=== PATIENT | male | born 1980 | race African-American/Black ===

== ENCOUNTER 2019-01-25 09:13 | Emergency (ER) | payer OTHER ==
[2019-01-25 10:21] LABS: #Eosinphils 0.1 thou/uL (0.0-0.7); #Lymphocytes 0.9 thou/uL (1.20-3.40); #Monocytes 0.6 thou/uL (0.11-0.59); %Basophils 0.2 % (0.0-1.0); %Eosinophils 0.9 % (0.0-10.0); %Lymphocytes 13.9 % (21.0-51.0); %Monocytes 8.7 % (0.0-10.0); %Neutrophils 76.2 % (42.0-75.0); Hemoglobin 15.3 g/dL (14.0-18.0); Mean Corpuscular HGB CONC 33.6 g/dL (32.0-36.0); Mean Corpuscular Hemoglobin 30.8 pg (27.0-31.0); Mean Corpuscular Volume 91.8 fL (78.0-98.0); Mean Platelet Volume 7.3 fL (7.4-10.4); Platelet Count 358 thou/uL (130-400); RBC Distribution Width 11.2 % (11.5-14.5); Red Blood Cell (RBC) Count 4.95 mill/uL (4.70-6.10); White Blood Cell (WBC) Count 6.5 thou/uL (4.8-10.8)
[2019-01-25 10:48] LABS: Acetaminophen Less than 6.0 mcg/mL (10.0-30.0); Alcohol Less than 10 mg/dL (Less than 10); Salicylate Less than 8.0 mg/dL (15.0-30.0)
[2019-01-25 10:50] LABS: ALT (SGPT) 23 U/L (8-55); AST (SGOT) 41 U/L (5-34); Albumin 4.7 g/dL (3.5-5.0); Alcohol Less than 10 mg/dL (Less than 10); Alkaline Phosphatase 83 U/L (40-150); Anion Gap 17 mmol/L (10-20); BUN (Urea Nitrogen) 10 mg/dL (8.9-20.6); Bilirubin, Total 1.3 mg/dL (0.2-1.2); Calc. Creatinine Clearance 0 mL/min (70-130); Calcium 10.4 mg/dL (7.8-10.44); Carbon Dioxide 22 mmol/L (22-29); Chloride 102 mmol/L (98-107); Estimated GFR-MDRD 87; Globulin 3.6 g/dL (2.4-3.5); Glucose 99 mg/dL (70-105); Potassium 3.3 mmol/L (3.5-5.1); Protein, Total 8.3 g/dL (6.0-8.3); Sodium 138 mmol/L (136-145)
[2019-01-25 11:37] LABS: Bilirubin Small (Negative); Blood, Urine Negative (Negative); Clarity CLEAR (Clear); Glucose, Urine (Dipstick) Negative (Negative); Leukocyte Negative (Negative); Nitrite Negative (Negative); Protein, Urine (Dipstick) 30 mg/dL (Neg-Trace); Specific Gravity, Urine 1.013 (1.002-1.036); pH, Urine 6.5 (5.0-9.0)
[2019-01-25 11:40] LABS: Bacteria/HPF None Seen HPF (None Seen); RBC/HPF 0-3 HPF (0-3)
[2019-01-25 11:41] LABS: Pathc Cast-AUWi Flag 3.19 (0-2.49)
[2019-01-25 11:44] LABS: Medtox Reader # READER 1
[2019-01-25 11:46] LABS: Amphetamine Not Detected (NotDetected); Barbiturates Screen Not Detected (NotDetected); Benzodiazepine Screen Not Detected (NotDetected); Cocaine Metabolite Screen Not Detected (NotDetected); Medtox Control Line Valid? VALID (VALID); Methadone Not Detected (NotDetected); Methamphetamine Detected (NotDetected); Opiate Screen Not Detected (NotDetected); Oxycodone Screen Not Detected (NotDetected); Phencyclidine (PCP) Not Detected (NotDetected); THC/Cannabinoid Screen Not Detected (NotDetected); Tricyclic Screen Not Detected (NotDetected)
[2019-01-25 11:49] LABS: Hyaline Casts/LPF 0-3 HYALINE CAST LPF (0-3 Hyaline); Other Casts/LPF 0-3 COARSE GRAN LPF (0-3 Hyaline)
== END 2019-01-25 11:57 ==
LOC: ERS 09:13
DX: F15.10 Other stimulant abuse, uncomplicated (principal); S06.9X0D Unspecified intracranial injury without loss of consciousness, subsequent encounter; I10 Essential (primary) hypertension; F41.9 Anxiety disorder, unspecified; F31.9 Bipolar disorder, unspecified; F20.9 Schizophrenia, unspecified; Z79.899 Other long term (current) drug therapy
CPT/HCPCS: 36415; 51701; 80053; 80306; 80307; 81003; 81015; 85025; 93005; 96360

== ENCOUNTER 2019-01-26 07:57 | Observation (INO) | payer OTHER ==
[2019-01-26 08:45] LABS: #Eosinphils 0.1 thou/uL (0.0-0.7); #Lymphocytes 1.3 thou/uL (1.20-3.40); #Monocytes 0.7 thou/uL (0.11-0.59); #Neutrophils 4.7 thou/uL (1.40-6.50); %Basophils 0.4 % (0.0-1.0); %Eosinophils 1.7 % (0.0-10.0); %Lymphocytes 18.8 % (21.0-51.0); %Monocytes 10.7 % (0.0-10.0); %Neutrophils 68.4 % (42.0-75.0); Hemoglobin 13.6 g/dL (14.0-18.0); Mean Corpuscular HGB CONC 33.2 g/dL (32.0-36.0); Mean Corpuscular Hemoglobin 30.1 pg (27.0-31.0); Mean Corpuscular Volume 90.6 fL (78.0-98.0); Platelet Count 300 thou/uL (130-400); RBC Distribution Width 11.2 % (11.5-14.5); Red Blood Cell (RBC) Count 4.54 mill/uL (4.70-6.10); White Blood Cell (WBC) Count 6.9 thou/uL (4.8-10.8)
[2019-01-26 09:06] LABS: ALT (SGPT) 23 U/L (8-55); AST (SGOT) 57 U/L (5-34); Albumin 4.1 g/dL (3.5-5.0); Alkaline Phosphatase 72 U/L (40-150); Anion Gap 10 mmol/L (10-20); BUN (Urea Nitrogen) 12 mg/dL (8.9-20.6); Bilirubin, Total 1.2 mg/dL (0.2-1.2); Calc. Creatinine Clearance 0 mL/min (70-130); Calcium 9.7 mg/dL (7.8-10.44); Carbon Dioxide 25 mmol/L (22-29); Chloride 108 mmol/L (98-107); Estimated GFR-MDRD Greater than 90; Globulin 3.6 g/dL (2.4-3.5); Glucose 102 mg/dL (70-105); Potassium 4.3 mmol/L (3.5-5.1); Protein, Total 7.7 g/dL (6.0-8.3); Sodium 139 mmol/L (136-145)
[2019-01-26 09:54] LABS: CRP (Inflammatory) 0.51 mg/dL (= or < 0.5)
--- NOTE | 2019-01-26 11:04 | CT ---
BRAIN CT WITHOUT CONTRAST: Comparison: 04-02-17 History: Weakness. Comparison: None. FINDINGS: No parenchymal hemorrhage. No extraaxial hematoma. No midline shift. Basilar cisterns are patent. Bra in volume is age appropriate. Cortical osorio white matter differentiation is preserved. No evidence of hydrocephalus. Calvarium is intact. Adequate aeration of the sinuses and mastoid air cells. IMPRESSION: No acute intracranial process. POS: [facility]
[2019-01-26 11:56] LABS: Bilirubin Small (Negative); Blood, Urine Negative (Negative); Clarity CLEAR (Clear); Glucose, Urine (Dipstick) Negative (Negative); Leukocyte Negative (Negative); Nitrite Negative (Negative); Protein, Urine (Dipstick) Negative (Neg-Trace); Specific Gravity, Urine 1.026 (1.002-1.036)
--- NOTE | 2019-01-26 13:15 | HP ---
PRIMARY CARE PHYSICIAN: Dr. David. CHIEF COMPLAINT: Acting odd and having tremors. HISTORY OF PRESENT ILLNESS: Mr. Bates is a 38-year-old gentleman, who according to the [place] [facility] Records has a history of bipolar disorder and schizophrenia. Apparently, he was picked up for drug use and was in the process of being incarcerated for this when he started having tremors. It is reported that the concern was that he was using methamphetamine as the urine drug screen on 01/25 was positive for this. He was having some tremors and in the ER, it was felt that this was the cause of the tremors. He was treated and released to the senior living. While in senior living, he continued to shake and have tremors pretty much through the night and also into today, the day of admission, and he also appeared to be a bit diaphoretic and for this reason, he was brought back to the emergency room for evaluation. When I see the patient and asked him what is his complaint, he says that "I tremor too much" and when I tried to ask him more questions, he gets very irritated and said "Oh my God!" and basically is very irritated with answering any questions. When asked what other symptoms he had, he said he is weak all over his body and denies having any pain. He denies any fevers or chills. No nausea. No vomiting. No headaches. No feeling dizzy and otherwise, no other complaints. It is of mention that when I am talking with him and the more he talks and is more distracted, the less tremor he has. With regard to the review of systems, all systems were reviewed and are negative except for that mentioned in the history of present illness. PAST MEDICAL HISTORY: The past medical history is taken from the [place] [facility] [employer] Records and includes bipolar disorder and schizophrenia. It appears they had received from [facility]. The patient also has a history of hypertension. The patient says he has "a mind illness and trouble dealing with life." PAST SURGICAL HISTORY: Unknown. ALLERGIES: NO KNOWN DRUG ALLERGIES. FAMILY HISTORY: No history of any heritable diseases. SOCIAL HISTORY: He is single. He says he has 5 children. He is a nonsmoker and nondrinker. His mother was listed in the [facility] Records as next of kin and that is Cathleen Fuller, and her number was [phone]. MEDICATIONS: Unknown. In review of his records back in 2017, he had been on; 1. Risperdal 1 mg twice a day. 2. Lisinopril 10 mg daily. 3. Iron sulfate. 4. Gabapentin 300 mg daily. 5. Tramadol 50 mg as needed. PHYSICAL EXAMINATION: GENERAL: He is alert. He appears to be a bit agitated. He is in four-point restraints and he is a bit diaphoretic. He is well developed and well nourished. VITAL SIGNS: His blood pressure was 156/109, heart rate 86, respiratory rate of 14, and temperature is 97.9. HEENT: His pupils are equal, round, and reactive. Extraocular muscles are intact. His sclerae are anicteric. Throat; there is no erythema. No exudates. NECK: No adenopathy. No bruits. LUNGS: Clear to auscultation. There are no wheezing, no rales, no rhonchi. CARDIOVASCULAR: He had a normal S1 and S2. I did not appreciate an S3 or S4. No murmurs, clicks, or rubs. ABDOMEN: Soft. It is nontender and nondistended. Positive for bowel sounds. There is no rebound or guarding. EXTREMITIES: There is no edema. NEUROLOGICAL: He is moving all extremities. He was able to lift both legs up off the stretcher. His muscle strength was intact even against resistance. He was able to dorsiflex and plantar flex both feet. 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 He had a very slight amount of past-pointing with the fingers. We did remove his upper extremity shackles in order to perform the test. SKIN AND INTEGUMENT: He has multiple tattoos pretty much throughout all of his extremities, on his neck, but no skin lesions. No rashes. LABORATORY RESULTS: He had a CT scan of the brain, which was negative for any acute intracranial process. His white blood cell count was 6.9, hemoglobin 13.6, hematocrit is 41.1, and platelet count was 300. Sodium 139, potassium 4.3, chloride is 108, CO2 is 25, BUN of 12, creatinine 0.84, and glucose is 102. Total bili was 1.2, AST is 57, and ALT is 23. ASSESSMENT AND PLAN: 1. This is a pleasant 38-year-old gentleman, who is brought to the hospital with tremors. I suspect that this is more psychiatric in nature, then it is a neurological concern. He is awake during this time and it appears as if the tremors do vary with the degree of distraction of the patient. The more distracted he is the less tremors. There appears to be in 1 or 2 times during the encounter, the tremor stopped altogether. He will be placed in observation. We will continue IV hydration and monitor him clinically. 2. For bipolar and schizophrenia, he had been on Risperdal. It is unclear whether or not he is currently on any medications. We will start the Risperdal twice a day and have p.r.n. antipsychotic medications and medications for anxiety p.r.n. as needed. Consider [facility] evaluation and further recommendations are to follow. Job ID: [id number]
[2019-01-26] MEDS ORDERED: Lorazepam 2 MG/ML VIAL SLOW IVP PRN (13:59)
[2019-01-26] MEDS ORDERED: Haloperidol 1 MG TAB PO PRN (13:59)
[2019-01-26] MEDS ORDERED: cloNIDine 0.1 MG TAB PO PRN (13:59)
[2019-01-26] MEDS ORDERED: Haloperidol Lactate 5 MG/ML VIAL IM PRN (13:59)
[2019-01-26] MEDS ORDERED: Acetaminophen 325 MG TAB PO PRN (13:59)
[2019-01-26] MEDS ORDERED: Lorazepam 0.5 MG TAB PO PRN (13:59)
[2019-01-26] MEDS ORDERED: Calcium Carbonate 500 MG ChewTAB PO PRN (13:59)
[2019-01-26] MEDS ORDERED: hydrALAZINE 20 MG/ML VIAL SLOW IVP PRN (13:59)
[2019-01-26 14:03] VITALS: BMI 30.6
[2019-01-26] MEDS: Sodium Chloride 0.9% 1,000 ML IV SCH (14:27)
[2019-01-26] MEDS: risperiDONE 1 MG TAB PO SCH (21:09)
[2019-01-27] MEDS: Sodium Chloride 0.9% 1,000 ML IV SCH ×3 (00:51→13:09)
[2019-01-27 05:54] LABS: #Eosinphils 0.1 thou/uL (0.0-0.7); #Lymphocytes 1.4 thou/uL (1.20-3.40); #Monocytes 0.6 thou/uL (0.11-0.59); #Neutrophils 3.1 thou/uL (1.40-6.50); %Basophils 0.5 % (0.0-1.0); %Eosinophils 2.6 % (0.0-10.0); %Lymphocytes 26.3 % (21.0-51.0); %Monocytes 11.3 % (0.0-10.0); %Neutrophils 59.3 % (42.0-75.0); Hemoglobin 12.7 g/dL (14.0-18.0); Mean Corpuscular HGB CONC 33.4 g/dL (32.0-36.0); Mean Corpuscular Hemoglobin 31.3 pg (27.0-31.0); Mean Corpuscular Volume 93.9 fL (78.0-98.0); Mean Platelet Volume 7.6 fL (7.4-10.4); Platelet Count 258 thou/uL (130-400); RBC Distribution Width 11.2 % (11.5-14.5); Red Blood Cell (RBC) Count 4.05 mill/uL (4.70-6.10); White Blood Cell (WBC) Count 5.2 thou/uL (4.8-10.8)
[2019-01-27 06:08] LABS: Anion Gap 12 mmol/L (10-20); BUN (Urea Nitrogen) 8 mg/dL (8.9-20.6); Calc. Creatinine Clearance 179 mL/min (70-130); Calcium 9.1 mg/dL (7.8-10.44); Carbon Dioxide 25 mmol/L (22-29); Chloride 108 mmol/L (98-107); Estimated GFR-MDRD Greater than 90; Glucose 99 mg/dL (70-105); Potassium 3.3 mmol/L (3.5-5.1); Sodium 142 mmol/L (136-145)
[2019-01-27] MEDS ORDERED: Lisinopril 10 MG TAB PO SCH (09:00)
[2019-01-27] MEDS ORDERED: Potassium Chloride 20 MEQ TAB PO SCH (09:30)
--- NOTE | 2019-01-27 09:56 | PDOC.PN ---
- Subjective Encounter Start Date: 01/27/19 Encounter Start Time: 09:55 Mr. Bates was seen today in follow-up of altered mental status. He is no longer shaking. It appears calmer. - Objective Resuscitation Status - Order Detail: 01/26/19 12:26 Resuscitation Status Routine Resuscitation Status: FULL: Full Resuscitation MAR Reviewed: Yes Vital Signs & Weight: Vital Signs (12 hours) Temp Pulse Resp BP Pulse Ox 01/27/19 07:50 98.9 F 72 20 138/94 H 98 01/27/19 04:00 97.8 F 89 16 177/98 H 96 01/27/19 00:00 98.1 F 76 16 131/78 97 Weight Weight 245 lb I&O: 01/26/19 01/27/19 01/28/19 06:59 06:59 06:59 Intake Total 1021 Output Total 2225 Balance -1204 Result Diagrams: 01/27/19 05:03 01/27/19 05:03 Phys Exam - Physical Examination HEENT: PERRLA Respiratory: no wheezing, no rales, no rhonchi, clear to auscultation bilateral Cardiovascular: RRR, no significant murmur, no rub Gastrointestinal: soft, non-tender, no distention, positive bowel sounds Musculoskeletal: no edema, pulses present Neurological: non-focal, normal sensation, moves all 4 limbs Dx/Plan (1) Metabolic encephalopathy Code(s): G93.41 - METABOLIC ENCEPHALOPATHY Status: Acute (2) Schizophrenia Code(s): F20.9 - SCHIZOPHRENIA, UNSPECIFIED Status: Acute (3) Bipolar disorder Code(s): F31.9 - BIPOLAR DISORDER, UNSPECIFIED Status: Acute - Plan * Metabolic encephalopathy- resolved- possibly related to Methamphetamine abuse * Schizophrenia/ Bipolar disorder- have started him on medications he was taking a few years ago- will consult [facility] * He is medically stable for discharge.
[2019-01-27] MEDS: risperiDONE 1 MG TAB PO SCH (10:03)
[2019-01-27 11:49] VITALS: BP 148/97; TEMP 97.5
--- NOTE | 2019-01-28 04:14 | DIS ---
DATE OF ADMISSION: 01/26/2019 DATE OF DISCHARGE: 01/27/2019 PRIMARY CARE PHYSICIAN: Dr. David. DISCHARGE DISPOSITION: Home. DISCHARGE DIAGNOSES: 1. Metabolic encephalopathy, possibly due to methamphetamine intoxication. 2. Schizophrenia. 3. Bipolar disorder. DISCHARGE MEDICATIONS: None. CODE STATUS: Full code. ALLERGIES: NO KNOWN DRUG ALLERGIES. PROCEDURES DONE DURING THE ADMISSION: The patient had a CT scan of the brain, which was negative for any acute intracranial process. HOSPITAL COURSE: Mr. Bates is a 38-year-old gentleman, who was brought in by the [place] [facility] [employer] as the patient was recently incarcerated in the [facility] longterm. He was found to have methamphetamine in his system from a urine drug screen from ER visit the night before. He was sent over because of continuing tremors. When he was evaluated, it was noted that the tremors seem to be intermittent. When he was distracted, the tremors either slowed down or ceased entirely. However, as a precaution, he was monitored overnight. He was placed on IV fluids due to slightly elevated CK. The following day, he appeared calm. He was not tremoring until you talk to him. However, we went ahead and consulted [facility] as I suspected this was likely psychological or related to his schizophrenia or bipolar disorder. He was apparently well known to the counselor at [facility] and she was not able to elicit any history or any complaints of suicidal or homicidal ideation. Therefore, she felt he was free to be released home. She would plan on doing a followup call tomorrow and that way he can be brought in for a clinic visit so that they can restart the appropriate medications for his bipolar disorder and schizophrenia. Job ID: [id number]
== END 2019-01-27 14:20 | disposition home or self-care (01) ==
LOC: ERS 07:57 → 2SE 11:02
PROVIDERS: ADMIT Internal Medicine; ATTEND Internal Medicine
DX: G93.41 Metabolic encephalopathy (principal); F20.9 Schizophrenia, unspecified; F31.9 Bipolar disorder, unspecified; I10 Essential (primary) hypertension; Z79.899 Other long term (current) drug therapy
CPT/HCPCS: 36415; 51702; 70450; 80048; 80053; 81003; 82550; 84443; 85025; 85652; 86140; 87086; 96360; 96361; G0378

== ENCOUNTER 2020-05-28 10:00 | Inpatient (IN) | payer OTHER ==
[~2020-05-28 10:00] MED LIST: Calcium Chloride 1 GM/10 ML Abboject SYRINGE ONE; EPINEPHrine 1 MG/10 ML Abboject SYRINGE ONE; Sodium Bicarb 50 MEQ/50 ML Abboject 8.4% SYRINGE ONE
[2020-05-28] MEDS ORDERED: cefTRIAXone\\ROCEPHIN 2 GM VIAL ONE (10:07)
[2020-05-28 10:42] LABS: #Lymphocytes 1.5 thou/uL (1.20-3.40); #Monocytes 1.5 thou/uL (0.11-0.59); #Neutrophils 7.7 thou/uL (1.40-6.50); %Basophils 0.4 % (0.0-1.0); %Eosinophils 0.1 % (0.0-10.0); %Lymphocytes 13.5 % (21.0-51.0); %Monocytes 14.1 % (0.0-10.0); %Neutrophils 71.9 % (42.0-75.0); Hemoglobin 15.9 g/dL (14.0-18.0); Mean Corpuscular HGB CONC 33.6 g/dL (32.0-36.0); Mean Corpuscular Hemoglobin 31.7 pg (27.0-31.0); Mean Corpuscular Volume 94.4 fL (78.0-98.0); Mean Platelet Volume 7.8 fL (7.4-10.4); Platelet Count 201 thou/uL (130-400); RBC Distribution Width 12.4 % (11.5-14.5); Red Blood Cell (RBC) Count 5.03 mill/uL (4.70-6.10); White Blood Cell (WBC) Count 10.8 thou/uL (4.8-10.8)
[2020-05-28] MEDS ORDERED: Acetaminophen 500 MG TAB ONE (10:49)
--- NOTE | 2020-05-28 10:50 | RAD ---
EXAM: Single view of the chest HISTORY: Tachycardia and chest pain COMPARISON: 04/01/2017 FINDINGS: Single view of the chest shows a normal sized cardiomediastinal silhouette. There is no delfina dence of consolidation, mass, or pleural effusion. Degenerative changes are seen in the spine. IMPRESSION: No evidence of acute cardiopulmonary disease
[2020-05-28 11:00] LABS: ALT (SGPT) 20 U/L (8-55); AST (SGOT) 97 U/L (5-34); Albumin 4.8 g/dL (3.5-5.0); Alkaline Phosphatase 70 U/L (40-110); Anion Gap 18 mmol/L (10-20); BUN (Urea Nitrogen) 60 mg/dL (8.9-20.6); Bilirubin, Total 2.4 mg/dL (0.2-1.2); Calc. Creatinine Clearance 0 mL/min (70-130); Calcium 9.5 mg/dL (7.8-10.44); Carbon Dioxide 20 mmol/L (22-29); Chloride 120 mmol/L (98-107); Estimated GFR-MDRD 45; Globulin 4.1 g/dL (2.4-3.5); Glucose 136 mg/dL (70-105); Potassium 3.5 mmol/L (3.5-5.1); Protein, Total 8.9 g/dL (6.0-8.3); Sodium 154 mmol/L (136-145)
[2020-05-28 11:24] LABS: CKMB 2.2 ng/mL (0-6.6)
[2020-05-28 11:30] LABS: Bacteria/HPF None Seen HPF (None Seen); Bilirubin Negative (Negative); Blood, Urine 2+ (Negative); Clarity Turbid (Clear); Glucose, Urine (Dipstick) Normal (Negative); Leukocyte Negative Leu/uL (Negative); Mucous/LPF 2+ LPF (<2+); Nitrite Negative (Negative); Protein, Urine (Dipstick) 100 mg/dL (Neg-Trace); RBC/HPF 0-3 HPF (0-3); Squamous Epithelial None Seen HPF (0-3)
[2020-05-28 11:44] LABS: Amphetamine Detected (NotDetected); Barbiturates Screen Not Detected (NotDetected); Benzodiazepine Screen Not Detected (NotDetected); Cocaine Metabolite Screen Not Detected (NotDetected); Medtox Control Line Valid? VALID (VALID); Medtox Reader # READER 4; Methadone Not Detected (NotDetected); Methamphetamine Detected (NotDetected); Opiate Screen Not Detected (NotDetected); Oxycodone Screen Not Detected (NotDetected); Phencyclidine (PCP) Not Detected (NotDetected); THC/Cannabinoid Screen Not Detected (NotDetected); Tricyclic Screen Detected (NotDetected)
[2020-05-28] MEDS ORDERED: Acetaminophen 325 MG TAB PO PRN (12:16)
[2020-05-28] MEDS ORDERED: Propranolol 10 MG TAB PO SCH (12:30)
[2020-05-28] MEDS ORDERED: Benztropine Mesylate 2 MG/2 ML VIAL IVP SCH (12:30)
[2020-05-28] MEDS ORDERED: Aspirin Chewable 81 MG TAB ONE (12:44)
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
--- NOTE | 2020-05-28 13:53 | CT ---
CT HEAD WITHOUT IV CONTRAST COMPARISON: 01/26/2019 HISTORY: Febrile, tachypnea, and hypoxic. TECHNIQUE: Axial CT imaging at 5 mm intervals from vertex through skull base without contrast FINDINGS: There is cerebellar volume loss stable from the prior study. There is no evidence of an acute infarct ion, hemorrhage, mass effect, or midline shift. The ventricular system is normal in size, shape, and position. Visualized paranasal sinuses are clear. Osseous structures appear intact.CT head is stable compared to prior exam. IMPRESSION: 1. No acute intracranial abnormality demonstrated. 2. Stable cerebellar volume loss.
--- NOTE | 2020-05-28 14:03 | CT ---
EXAM: CT of the chest without contrast HISTORY: Hypoxia and fever COMPARISON: None TECHNIQUE: Multiple contiguous axial images were obtained in a CT the chest without contrast. Coronal and sagittal reformats were performed. FINDINGS: HEART: Normal in size without focal cardiac abnormality MEDIASTINUM: No hilar or mediastinal lymphadenopathy. Evaluation of the mediastinum is limited withou t IV contrast. LUNGS: No focal infiltrates, nodules, or masses. PLEURAL SPACE: No pneumothorax or pleural effusion. CHEST WALL SOFT TISSUES: Unremarkable OSSEOUS STRUCTURES: Unremarkable VISUALIZED SUBDIAPHRAGMATIC STRUCTURES: Unremarkable IMPRESSION: No evidence of acute intrathoracic abnormality.
[2020-05-28 14:35] LABS: Iron 80 ug/dL (65-175)
[2020-05-28 14:40] VITALS: BMI 26.9
[2020-05-28 14:47] LABS: Calcium 9.6 mg/dL (7.8-10.44); Phosphorus 3.7 mg/dL (2.3-4.7)
[2020-05-28 14:47] LABS: CK (CPK) 7857 U/L (30-200)
[2020-05-28] MEDS ORDERED: hydrALAZINE 20 MG/ML VIAL SLOW IVP PRN (15:32)
[2020-05-28 15:58] LABS: Anion Gap 12 mmol/L (10-20); BUN (Urea Nitrogen) 52 mg/dL (8.9-20.6); Calc. Creatinine Clearance 80 mL/min (70-130); Calcium 8.2 mg/dL (7.8-10.44); Carbon Dioxide 24 mmol/L (22-29); Chloride 123 mmol/L (98-107); Estimated GFR-MDRD 54; Glucose 112 mg/dL (70-105); Potassium 4.2 mmol/L (3.5-5.1); Sodium 155 mmol/L (136-145)
[2020-05-28] MEDS ORDERED: Lactated Ringer's 1,000 ML IV SCH (18:00)
[2020-05-28] MEDS: Heparin 5,000 UNITS/ML VIAL SC SCH ×2 (18:15→21:19)
[2020-05-28] MEDS: Lactated Ringer's 1,000 ML IV SCH (22:40)
[2020-05-28 22:51] LABS: Creatinine, Urine 242.96 mg/dL (63-166)
[2020-05-28 23:47] LABS: ALT (SGPT) 21 U/L (8-55); AST (SGOT) 105 U/L (5-34); Alkaline Phosphatase 55 U/L (40-110); Anion Gap 14 mmol/L (10-20); BUN (Urea Nitrogen) 54 mg/dL (8.9-20.6); Bilirubin, Total 1.7 mg/dL (0.2-1.2); Calc. Creatinine Clearance 79 mL/min (70-130); Calcium 8.2 mg/dL (7.8-10.44); Carbon Dioxide 23 mmol/L (22-29); Chloride 122 mmol/L (98-107); Estimated GFR-MDRD 54; Globulin 2.9 g/dL (2.4-3.5); Glucose 114 mg/dL (70-105); Potassium 4.3 mmol/L (3.5-5.1); Protein, Total 6.9 g/dL (6.0-8.3); Sodium 155 mmol/L (136-145)
[2020-05-29 01:20] LABS: Anion Gap 12 mmol/L (10-20); BUN (Urea Nitrogen) 40 mg/dL (8.9-20.6); Calc. Creatinine Clearance 132 mL/min (70-130); Calcium 8.2 mg/dL (7.8-10.44); Carbon Dioxide 22 mmol/L (22-29); Chloride 121 mmol/L (98-107); Estimated GFR-MDRD Greater than 90; Glucose 104 mg/dL (70-105); Potassium 3.9 mmol/L (3.5-5.1); Sodium 151 mmol/L (136-145)
[2020-05-29 04:54] LABS: #Basophils 0.1 thou/uL (0.0-0.2); #Eosinphils 0.3 thou/uL (0.0-0.7); #Lymphocytes 1.9 thou/uL (1.20-3.40); %Basophils 0.6 % (0.0-1.0); %Eosinophils 2.5 % (0.0-10.0); %Lymphocytes 16.7 % (21.0-51.0); %Monocytes 8.7 % (0.0-10.0); %Neutrophils 71.5 % (42.0-75.0); Hemoglobin 12.9 g/dL (14.0-18.0); Mean Corpuscular HGB CONC 32.6 g/dL (32.0-36.0); Mean Corpuscular Hemoglobin 31.2 pg (27.0-31.0); Mean Corpuscular Volume 95.6 fL (78.0-98.0); Mean Platelet Volume 7.8 fL (7.4-10.4); Platelet Count 143 thou/uL (130-400); RBC Distribution Width 12.1 % (11.5-14.5); Red Blood Cell (RBC) Count 4.13 mill/uL (4.70-6.10); White Blood Cell (WBC) Count 11.2 thou/uL (4.8-10.8)
[2020-05-29 05:20] LABS: ALT (SGPT) 28 U/L (8-55); AST (SGOT) 129 U/L (5-34); Albumin 3.8 g/dL (3.5-5.0); Alkaline Phosphatase 59 U/L (40-110); Anion Gap 13 mmol/L (10-20); BUN (Urea Nitrogen) 35 mg/dL (8.9-20.6); Bilirubin, Total 1.6 mg/dL (0.2-1.2); Calc. Creatinine Clearance 147 mL/min (70-130); Calcium 8.1 mg/dL (7.8-10.44); Carbon Dioxide 23 mmol/L (22-29); Chloride 118 mmol/L (98-107); Estimated GFR-MDRD Greater than 90; Glucose 99 mg/dL (70-105); Potassium 3.8 mmol/L (3.5-5.1); Protein, Total 6.8 g/dL (6.0-8.3); Sodium 150 mmol/L (136-145)
[2020-05-29 05:45] LABS: CK (CPK) 13748 U/L (30-200)
--- NOTE | 2020-05-29 06:21 | PDOC.FM ---
- Subjective Subjective: Patient resting comfortably in bed. Per nursing, patient did not pass bedside swallow yesterday. Patient reports feeling better today. Endorses feeling very thirsty. Patient remains oriented x2. Unable to give any more details as to what led up to his hospitalization. - Objective MAR Reviewed: Yes Vital Signs & Weight: Vital Signs (12 hours) Temp Pulse Resp BP BP Pulse Ox 05/29/20 04:00 99 F 89 24 H 150/88 H 97 05/29/20 00:00 98.4 F 86 20 150/84 H 99 05/28/20 19:39 99.3 F 81 24 H 133/94 H 98 Weight Weight 97.613 kg I&O: 05/27/20 05/28/20 05/29/20 06:59 06:59 06:59 Intake Total 1000 Output Total 700 Balance 300 Result Diagrams: 05/29/20 04:36 05/29/20 12:33 Phys Exam - Physical Examination Constitutional: NAD sitting up in bed HEENT: PERRLA, sclera anicteric dryMM - lips cracked Neck: supple, full ROM Respiratory: no wheezing, no rales, no rhonchi, clear to auscultation bilateral Cardiovascular: RRR, no significant murmur, no rub Gastrointestinal: soft, non-tender Musculoskeletal: no edema Neurological: non-focal Deviation from normal: axox2; akathesia, motor rigidity Skin: no rash, cap refill <2 seconds Dx/Plan (1) Neuroleptic malignant syndrome Code(s): G21.0 - MALIGNANT NEUROLEPTIC SYNDROME Status: Acute (2) Bipolar disorder Code(s): F31.9 - BIPOLAR DISORDER, UNSPECIFIED Status: Acute (3) Schizophrenia Code(s): F20.9 - SCHIZOPHRENIA, UNSPECIFIED Status: Acute (4) Person under investigation for COVID-19 Code(s): Z20.828 - CONTACT W AND EXPOSURE TO OTH VIRAL COMMUNICABLE DISEASES Status: Acute - Plan Plan: Encephalopathy 2/2 likely NMS vs EPS Had tetrad of fever (103F), rigidity, mental status changes and autonomic instability (tachycardic, high blood pressure, tachypneic) on admission. Patient was also hypoxic per EMS at 88% on RA and was placed on NC. Per family, patient ingested haldol and has done this previously. UDS positive for methamphetamines and TCAs. s/p Benztropine, 30ml/kg, LR @ 150ml/hr in the ER. - Discontinue offending drug - likely haldol - Fever resolved - if elevates again can try cooling blankets along with ice packs in axilla. Tylenol PRN. - Continue IVF LR @150cc/hr - Heparin for DVT ppx - Will start benztropine 1mg daily. Can consider discontinuing after 2 weeks due to SE profile. Patient still with EPS symptoms including akathisia, cogwheel rigidity. - Currently satting well on RA, continue to monitor O2 sat - [place]7000 [place] [address]. - Monitor on continuous telemetry - with NMS cardiac arrhythmias common COVID PUI Due to fever on admission swabbed for COVID. No known exposures. Mother did endorse that he had been congested. - await swab results Acute hypoxic respiratory failure likely 2/2 above, resolved Requiring 2L O2 not on O2 at baseline. Initially 88% RA when EMS arrived on scene. - Now satting well on RA. Continue to monitor. Elevated troponin Likely related to meth use/demand Hypernatremia Na 154 likey 2/2 dehydration - Has downtrended to 150, continue IVF Rhabdomyolisis CK >7000, but likely in the setting of NMS. - Has uptrended to >43531. - Aggressive fluid hydration GUIDO, resolved Creatinine elevated to 2.1 with BUN to 60 on admission. Elevated from baseline. Likely 2/2 Rhabdo - Aggressive fluids - Cr 0.92 this AM Mental Health disorders including schizophrenia and bipolar Patient sees [facility] - Hold haldol, cannot be started for at least 2 weeks Substance abuse Meth + on UDS - Will encourage cessation once more alert and oriented Dispo: admit to tele, inpatient IVF: LR @ 150ml/hr Ppx: Heparin Diet: cl liquid pending bedside swallow Case discussed with Dr. Bermudez Addendum - Attending - Attending Attestation Date/Time: 05/29/20 2056 I personally evaluated the patient and discussed the management with Dr. Salazar I agree with the History, Examination, Assessment and Plan documented above with any addition or exceptions noted below - Patient more awake and responsive. Afebrile VSS. A/P: 1) AMS- improved- most likely EPS effect from Haldol. Continue cogentin. COVID negative. 2) Rhabdomyolysis - continue IVF. 3) Hypernatremia- improving; continue to monitor. 4) GUIDO- resolved.
[2020-05-29] MEDS: Lactated Ringer's 1,000 ML IV SCH ×3 (06:30→23:06)
[2020-05-29] MEDS: Heparin 5,000 UNITS/ML VIAL SC SCH (09:18)
[2020-05-29] MEDS ORDERED: Benztropine 1 MG TAB PO SCH ×2 (09:45→21:00)
[2020-05-29] MEDS ORDERED: Enoxaparin Sodium 40 MG/0.4 ML SYRINGE SC SCH (12:15)
[2020-05-29 12:20] LABS: SARS-CoV-2 MS2 Positive; SARS-CoV-2 N Gene Negative; SARS-CoV-2 S Gene Negative; SARS-CoV-2 orf1ab Negative
[2020-05-29 13:03] LABS: Anion Gap 14 mmol/L (10-20); BUN (Urea Nitrogen) 29 mg/dL (8.9-20.6); Calc. Creatinine Clearance 183 mL/min (70-130); Calcium 8.3 mg/dL (7.8-10.44); Carbon Dioxide 22 mmol/L (22-29); Chloride 115 mmol/L (98-107); Estimated GFR-MDRD Greater than 90; Glucose 86 mg/dL (70-105); Potassium 3.6 mmol/L (3.5-5.1); Sodium 147 mmol/L (136-145)
[2020-05-29 19:50] VITALS: TEMP 98.2
[2020-05-29] MEDS ORDERED: Vancomycin 1.5 GRAM/300 ML BAG 1.5 GM in Premix Bag 1 BAG IVPB SCH (20:00)
[2020-05-30] MEDS ORDERED: Iopamidol 370 76% 100 ML VIAL ONE (02:00)
[2020-05-30] MEDS ORDERED: Succinylcholine Chloride 20 MG/ML 10 ml SYRINGE FS ONE (02:00)
[2020-05-30 02:12] LABS: Actual Bicarbonate (HCO3a) 16.3 mEq/L (22-28); Base Excess (BEa) -6.9 mEq/L (-2.0 to +3.0); CO2 Tension 26.9 mmHg (35.0-45.0); Calcium, Ionized (arterial) 1.16 mmol/L (1.12-1.30); Carboxyhemoglobin (COHb) 0.1 gm% (0.0-3.0); Hemoglobin (Hb) 13.2 g/dL (14.0-18.0); O2 Tension (PaO2), arterial 63.4 mmHg (80.0-100.0)
[2020-05-30 02:13] LABS: Puncture Site FEMORAL
[2020-05-30 02:14] LABS: ALV-art Gradient 159.655 (0-20)
[2020-05-30] MEDS ORDERED: Enoxaparin Sodium 100 MG/ML SYRINGE SC SCH ×2 (02:15→21:00)
[2020-05-30] MEDS ORDERED: Norepinephrine 8 MG/0.9% NS 250 ML ONE (02:32)
[2020-05-30] MEDS ORDERED: EPINEPHrine 4 MG in Dextrose 5% in Water 250 ML IV SCH (02:45)
[2020-05-30 02:49] LABS: Actual Bicarbonate (HCO3a) 18.5 mEq/L (22-28); Base Excess (BEa) -9.4 mEq/L (-2.0 to +3.0); Calcium, Ionized (arterial) 1.32 mmol/L (1.12-1.30); Carboxyhemoglobin (COHb) 0.3 gm% (0.0-3.0); Hemoglobin (Hb) 11.4 g/dL (14.0-18.0); Potassium - ABG Lab 3.11 mmol/L (3.70-5.30)
[2020-05-30 03:07] LABS: Puncture Site LFA
[2020-05-30 03:47] LABS: #Basophils 0.1 thou/uL (0.0-0.2); #Eosinphils 0.4 thou/uL (0.0-0.7); #Lymphocytes 5.3 thou/uL (1.20-3.40); #Neutrophils 7.7 thou/uL (1.40-6.50); %Basophils 0.4 % (0.0-1.0); %Eosinophils 2.6 % (0.0-10.0); %Lymphocytes 36.8 % (21.0-51.0); %Monocytes 7.1 % (0.0-10.0); %Neutrophils 53.1 % (42.0-75.0); Mean Corpuscular HGB CONC 32.1 g/dL (32.0-36.0); Mean Corpuscular Hemoglobin 31.6 pg (27.0-31.0); Mean Corpuscular Volume 98.5 fL (78.0-98.0); Mean Platelet Volume 8.6 fL (7.4-10.4); Platelet Count 57 thou/uL (130-400); Platelet Morphology Comment Appears Decreased; Red Blood Cell (RBC) Count 3.48 mill/uL (4.70-6.10); White Blood Cell (WBC) Count 14.5 thou/uL (4.8-10.8)
[2020-05-30 03:49] LABS: PTT 34.7 sec (22.9-36.1)
[2020-05-30 03:54] LABS: ALT (SGPT) 55 U/L (8-55); AST (SGOT) 135 U/L (5-34); Albumin 2.5 g/dL (3.5-5.0); Alkaline Phosphatase 57 U/L (40-110); Anion Gap 20 mmol/L (10-20); BUN (Urea Nitrogen) 25 mg/dL (8.9-20.6); Bilirubin, Total 0.6 mg/dL (0.2-1.2); Calc. Creatinine Clearance 94 mL/min (70-130); Calcium 8.6 mg/dL (7.8-10.44); Carbon Dioxide 19 mmol/L (22-29); Chloride 109 mmol/L (98-107); Estimated GFR-MDRD 66; Globulin 2.2 g/dL (2.4-3.5); Glucose 275 mg/dL (70-105); Potassium 3.2 mmol/L (3.5-5.1); Protein, Total 4.7 g/dL (6.0-8.3); Sodium 145 mmol/L (136-145)
[2020-05-30 03:55] LABS: CKMB 3.4 ng/mL (0-6.6)
--- NOTE | 2020-05-30 03:55 | PRG ---
DATE OF SERVICE: 05/30/2020 TIME OF SERVICE: 0030 hours to 0302 hours. HISTORY OF PRESENT ILLNESS: Maris Zafar was called on the patient approximately at 0001 hours for acute worsening respiratory distress and profuse diaphoresis. Per nursing staff, the patient had been walking to the restroom, sat up, during which time his eyes rolled to the back of his head and he temporarily lost consciousness. There was concern for pulmonary emboli, so he was sent to the CT scanner. While in the CT scanner, he experienced a brief cardiac arrest going into ventricular tachycardia. He was then transferred to the ICU, where he was noted to have adversely worsening respiratory distress. We discussed with the patient that he would need endotracheal intubation for respiratory support given his critically ill state. At this time, his blood pressure was detected using the automated machine, but his pulses were palpable. RSI was performed with etomidate 30 mg and succinylcholine 100 mg. He was intubated with a GlideScope without difficulty. An 8 cm endotracheal tube was placed at 25 cm at the lips. Postprocedural chest x- ray showed appropriate placement. As he was being settled into his room, he became profoundly bradycardic. Immediately prior to this, an EKG showed diffuse bundle-branch block in all leads with nonspecific ST changes and sinus tachycardia. He lost pulse for the first time at approximately 0232 hours. For the next 30 minutes, he was placed on a Levophed drip, received three rounds of sodium bicarb, six 0.1 mg doses of epinephrine and one round of calcium chloride and was started on an epinephrine drip. CT scan showed that he had massive bilateral pulmonary emboli with evidence of right heart strain. During the code, his left AC venous access was intermittently malfunctioning. I used a triple-lumen central line kit, but was unable to place the central line; however, I used the 18-gauge introducer catheter and placed it in his right femoral vein for IV access. ROSC was achieved multiple times only to be lost usually within 30 seconds of ceasing chest compressions. After running the code for 30 minutes, it was determined that the patient would not survive and no further resuscitative measures were attempted. He did not have palpable pulse at the time of this final pulse check. The patient was pronounced at 0302 hours. Cause of is massive bilateral pulmonary emboli leading to cardiac and respiratory arrest. The patient's mother was notified. Approximately 75 minutes of critical care time were spent with this patient excluding the endotracheal intubation and running of his code. Job ID: [id number] MTDD
[2020-05-30 03:58] LABS: INR-International Normal Ratio 1.5; Prothrombin Time 17.8 sec (12.0-14.7)
[2020-05-30 04:14] LABS: D-Dimer Test Greater than 20.00 *mcg/mL (0.27-0.43)
--- NOTE | 2020-05-30 04:29 | PDOC.EVN ---
Event Note - Event Note Event Note: Summary: Attending: Rafy Riley MD Resident: Sobeida Thorne MD, Lucas Wilson DO Admission Date: 05/28/2020 Date of : 05/30/2020 Time of : 301 Cause of : Massive pulmonary embolism Secondary diagnoses: 1. Neuroleptic malignant syndrome 2. Rhabdomyolysis 3. Hypernatremia 4. Acute kidney injury 5. HTN 6. Anxiety 7. Bipolar disorder 8. Depression 9. Schizophrenia 10. Substance abuse Hospital course: Patient presented to the ED via EMS after being found down by family. Upon arrival, he was febrile at 103, tachypneic and hypoxic. Patient was diagnosed with encephalopathy 2/2 neuroleptic malignant syndrome related to haldol use. CK was > 7000. Na 155. Patient received IVF LR. Benztropine 1mg begun due to EPS symptoms. Maris sheets called due to worsening respiratory distress and diaphoresis. He was sent to the CT scanner and experienced brief cardiac arrest. He was transferred to the ICU where he was intubated. He lost pulse at 0232 and CPR was begun. After 30 minutes, it was determined that the patient would not survive. Patient was pronounced at 0302 hours.
[2020-05-30 05:05] VITALS: BP 82/58
--- NOTE | 2020-05-30 07:50 | CT ---
PRELIMINARY REPORT/[facility]/EMERGENCY AFTER HOUS PROCEDURE: EXAM: CT Head Without Intravenous Contrast. CLINICAL HISTORY: M40, DIZZINESS, SYNCOPE EPISODE WITH NURSE PRESENT. PATIENT DID NOT HIT HEAD. TECHNIQUE: Axial computed tomography images of the head/brain without intravenous contrast. COMPARISON: CT\SR - CT BRAIN WO CON - 05/28/2020 01:45 PM CDT FINDINGS: BRAIN: No intracranial hemorrhage. Volume loss of cerebellum is unchanged. VENTRICLES: No hydrocephalus. ORBITS: The orbits are unremarkable. SINUSES AND MASTOIDS: The paranasal sinuses and mastoid air cells are clear. SOFT TISSUES: No significant facial or scalp soft tissue swelling evident. No radiopaque foreign body is seen. BONES: No acute skull fracture. IMPRESSION: No acute intracranial abnormality. ELECTRONICALLY SIGNED BY: Charlene Cheema MD May 30, 2020 2:07:28 AM CDT FINAL REPORT EMERGENT AFTER HOURS NONCONTRAST CT HEAD: HISTORY: Dizziness, syncope. Code green activation. COMPARISON: 05/28/2020. IMPRESSION: 1. No acute intracranial abnormality is demonstrated. 2. Prominent cerebellar volume loss unchanged from prior exam. Mild volume loss of the midbrain is al so again seen. 3. Findings are in agreement with preliminary report by [facility]. Transcribed Date/Time: 05/30/2020 7:56 AM
--- NOTE | 2020-05-30 08:03 | CT ---
PRELIMINARY REPORT/[facility]/EMERGENCY AFTER HOURS PROCEDURE: Receipt of this report by the clinical staff was confirmed with Rafy Aceves MD by Carmen oliveira on May 30, 2020 02:20:00 CDT. Addendum electronically signed by Carmen oliveira on May 30, 2020 2:20:27 AM CDT EXAM: CTA Chest with Intravenous Contrast CLINICAL HISTORY: M40, DIZZINESS, SYNCOPE EPISODE WITH NURSE PRESENT, patient complains of SOB TECHNIQUE: Axial CTA images of the chest with intravenous contrast. Three-dimensional MIP/volume rend ered reformations were performed. CONTRAST: With; [id number], 95 MLS COMPARISON: CT\SR - CT CHEST WO CON - 05/28/2020 01:48 PM CDT FINDINGS: PULMONARY ARTERIES Exam is markedly positive for PE with large clot burden. Pulmonary emboli are pre sent at the bifurcation of bilateral main pulmonary arteries with clot extending throughout the lobes. AORTA No thoracic aortic aneurysm or dissection. LUNGS The lungs are clear. No pulmonary mass. No focal airspace consolidation. PLEURAL SPACES No pleural effusion. No pneumothorax. HEART AND MEDIASTINUM RV?LV ratio measures 2 consistent with right heart strain. LYMPH NODES No lymphadenopathy. BONES No focal osseous abnormality or acute fracture. CHEST WALL AND UPPER ABDOMEN There is a large amount of stool within transverse colon. IMPRESSION: Exam is markedly positive for PE with large clot burden and associated right heart strai n. ELECTRONICALLY SIGNED BY: Charlene Cheema MD May 30, 2020 2:15:39 AM CDT FINAL REPORT EMERGENT AFTER HOURS CT ANGIOGRAM THORAX WITH IV CONTRAST AND 3D RECONSTRUCTIONS: HISTORY: Code green activation. Syncope and shortness of breath. COMPARISON: CT thorax 05/28/2020. IMPRESSION: 1. Extensive bilateral pulmonary emboli involving distal main pulmonary arteries as well as segmental and subsegmental pulmonary arteries. There is also suggested right heart strain. 2. Mild dilatation of the main pulmonary artery suggesting element of pulmonary artery hypertension. 3. Thoracic aorta is normal in caliber without evidence of an aortic dissection. 4. Lungs are clear aside from minimal atelectasis at each lung base primarily related to motion. No p arenchymal opacity or pleural effusion is identified. 5. Findings are in agreement with preliminary report by [facility]. Transcribed Date/Time: 05/30/2020 8:25 AM
--- NOTE | 2020-05-30 08:26 | RAD ---
PORTABLE CHEST 1 VIEW: DATE: 05/30/2020. TIME: 2:29 AM. HISTORY: Respiratory failure. COMPARISON: 05/28/2020. FINDINGS/IMPRESSION: There has been interval placement of an endotracheal tube with the tip just above the level of the ca tyrone. No lobar consolidation, pneumothoraces, or pleural effusions are seen. The heart size is norm al. POS: [facility]
[2020-05-30] MEDS ORDERED: Enoxaparin Sodium 40 MG/0.4 ML SYRINGE SC SCH (09:00)
[2020-05-30] MEDS ORDERED: Lisinopril 20 MG TAB PO SCH (09:00)
--- NOTE | 2020-05-30 18:26 | EKG ---
Test Reason : STAT Blood Pressure : / mmHG Vent. Rate : 145 BPM Atrial Rate : 227 BPM P-R Int : 000 ms QRS Dur : 008 ms QT Int : 320 ms P-R-T Axes : 073 000 256 degrees QTc Int : 497 ms Sinus tachycardia Left axis deviation Pulmonary disease pattern Abnormal ECG When compared with ECG of 28-MAY-2020 10:15, (Unconfirmed) QRS voltage has decreased Non-specific change in ST segment in Inferior leads T wave inversion now evident in Inferior leads Confirmed by CLEMENTINE JACINTO (2) on 05/30/2020 6:25:29 PM Referred By: ROBBI rodriguez Confirmed By:CLEMENTINE JACINTO
[2020-05-31 17:02] LABS: Cardiolipin IgA Ab 1.6 APL-U/mL (<14 Negative); Cardiolipin IgG Ab 0.6 GPL-U/mL (<10 Negative); Cardiolipin IgM Ab 0.9 MPL-U/mL (<10 Negative); EliA APS New Method **** NEW METHOD ****
== END 2020-05-30 03:02 | disposition expired | DRG 91 ==
LOC: ERS 10:00 → 2SW 14:14 → 2NO 05-29 15:47 → CCU 05-30 02:08
PROVIDERS: ADMIT Family Medicine; ATTEND Family Medicine
PROC: 5A1935Z Respiratory Ventilation, Less than 24 Consecutive Hours (ICD-10-PCS; principal; 2020-05-30)
PROC: 0BH18EZ Insertion of Endotracheal Airway into Trachea, Via Natural or Artificial Opening Endoscopic (ICD-10-PCS; 2020-05-30)
PROC: 3E033XZ Introduction of Vasopressor into Peripheral Vein, Percutaneous Approach (ICD-10-PCS; 2020-05-30)
DX: G21.0 Malignant neuroleptic syndrome (principal); G92 Toxic encephalopathy; J96.01 Acute respiratory failure with hypoxia; I26.99 Other pulmonary embolism without acute cor pulmonale; E87.0 Hyperosmolality and hypernatremia; M62.82 Rhabdomyolysis; N17.9 Acute kidney failure, unspecified; I47.2 Ventricular tachycardia; T43.4X1A Poisoning by butyrophenone and thiothixene neuroleptics, accidental (unintentional), initial encounter; Z20.828 Contact with and (suspected) exposure to other viral communicable diseases; I46.8 Cardiac arrest due to other underlying condition; I10 Essential (primary) hypertension; G47.33 Obstructive sleep apnea (adult) (pediatric); F17.210 Nicotine dependence, cigarettes, uncomplicated; F31.9 Bipolar disorder, unspecified; F20.9 Schizophrenia, unspecified; E86.0 Dehydration; F15.10 Other stimulant abuse, uncomplicated; F41.9 Anxiety disorder, unspecified; G25.71 Drug induced akathisia; G25.79 Other drug induced movement disorders
CPT/HCPCS: 36415; 36416; 51701; 70450; 71045; 71250; 71275; 80053; 80306; 81003; 81015; 81240; 81241; 82140; 82550; 82553; 82570; 82805; 83090; 83540; 83605; 83735; 83880; 83930; 83935; 84100; 84145; 84300; 84443; 84484; 85025; 85240; 85300; 85303; 85305; 85307; 85379; 85598; 85610; 85730; 86147; 87040; 87077; 87086; 87149; 87635; 90471; 90732; 92950; 93005; 93010; 94760; 96361; 96365; 96374; G0009; J0171; J0515; J0696; J1644; J1650; J3370; J7030; Q9967; U0003